=== PATIENT | female | born 1960 | race Caucasian/White ===

== ENCOUNTER 2018-07-18 23:06 | Emergency (ER) | payer MEDICARE ==
[2018-07-18] MEDS ORDERED: TETANUS/DIPHTHERIA/PERTUSSIS 0.5 ML SYRINGE IM ONE (23:36)
[2018-07-19 00:08] VITALS: BP 123/67
[2018-07-19] MEDS ORDERED: BACITRACIN OINT TOP STA (00:08)
--- NOTE | 2018-07-19 00:11 | ED Physician Documentation ---
PD HPI UPPER EXT INJURY - Stated complaint Stated Complaint: L THUMB LAC - Chief complaint Chief Complaint: Laceration - History obtained from History obtained from: Patient - History of Present Illness Location: Left, Finger (thumb) Type of injury: Laceration (broken glass) Where injury occurred: Home Timing - onset: How many hours ago (2) Timing - duration: Hours (2) Timing - details: Abrupt onset Pain level max: 3 Pain level now: 2 Improved by: Rest Worsened by: Moving, Palpating Contributing factors: No: Anticoagulated Recently seen: Not recently seen - Additonal information Additional information: Left thumb laceration on broken glass. Unknown last tetanus Review of Systems Neurologic: denies: Focal weakness, Numbness PD PAST MEDICAL HISTORY - Past Medical History Past Medical History: Yes Cardiovascular: Valve disorder, Other Endocrine/Autoimmune: HyPOthyroidism Psych: Post traumatic stress disorder Other Past Medical History: Mitrial Valve Prolapse - Past Surgical History Past Surgical History: No - Present Medications Home Medications: Ambulatory Orders Medication Instructions Recorded Confirmed Levothyroxine [Synthroid] 125 mcg PO DAILY 07/18/18 07/18/18 clonazePAM [Clonazepam] 0.5 mg PO DAILY PM 07/18/18 07/18/18 Bacitracin Zinc Oint 1 applic TOP BID #1 tube 07/19/18 - Allergies Allergies/Adverse Reactions: Allergies Allergy/AdvReac Type Severity Reaction Status Date / Time acetaminophen Allergy Anaphylaxis Verified 07/18/18 23:25 hydrocodone AdvReac Unknown Verified 07/18/18 23:25 oxycodone AdvReac Rash Verified 07/18/18 23:25 - Social History Does the pt smoke?: No Smoking Status: Never smoker Does the pt drink ETOH?: No Does the pt have substance abuse?: No - Immunizations Immunizations are current?: No Immunizations: TDAP >10years/unknown - POLST Patient has POLST: No PD ED PE NORMAL - Vitals Vital signs reviewed: Yes - General General: Alert and oriented X 3, No acute distress - Derm Derm: Warm and dry - Extremities Extremities: Other (Left thumb - 0.2 x 0.3 cm abrasion to the distal aspect of the knuckle. Full range of motion. No tendon injury. Neurovascularly intact) - Neuro Neuro: Alert and oriented X 3 Results - Vitals Vitals: Vital Signs - 24 hr 07/18/18 07/19/18 23:19 00:07 Temperature 36.8 C 36.3 C L Heart Rate 70 76 Respiratory 16 16 Rate Blood Pressure 122/76 123/67 O2 Saturation 97 97 Oxygen O2 Source Room air PD MEDICAL DECISION MAKING - ED course Complexity details: considered differential, d/w patient ED course: 58-year-old female with an avulsion injury to the left thumb, dorsal aspect, just distal to the IP joint. Neurovascularly intact. Wound was cleansed and bandaged. Tdap given. Warnings of infection and instructions on wound care given at bedside. Also counseled on how to minimize scarring. Patient counseled regarding signs and symptoms for which I believe and urgent re-evaluation would be necessary. Patient with good understanding of and agreement to plan and is comfortable going home at this time This document was made in part using voice recognition software. While efforts are made to proofread this document, sound alike and grammatical errors may occur. No tendon injury Departure - Departure Disposition: 01 Home, Self Care Clinical Impression: Avulsion of skin Condition: Good Instructions: ED Avulsion Dermal Follow-Up: your,doctor in 1 week for wound check. [Other] Prescriptions: Bacitracin Zinc Oint 1 applic TOP BID #1 tube Comments: Leave the dressing on for 24 hours and then change the dressing. You can apply antibiotic ointment twice a day. Return if you notice redness, swelling, drainage from the wound or streaking up your arm. You were given a tetanus shot today Discharge Date/Time: 07/19/18 00:15
== END 2018-07-19 00:15 | disposition home or self-care (01) ==
LOC: ED 23:06
DX: S60.312A Abrasion of left thumb, initial encounter (principal); W25.XXXA Contact with sharp glass, initial encounter; Y93.89 Activity, other specified; Y92.009 Unspecified place in unspecified non-institutional (private) residence as the place of occurrence of the external cause; Z23 Encounter for immunization
CPT/HCPCS: 90471; 90715; 99283; A9270